=== PATIENT | male | born 1965 ===

== ENCOUNTER 2021-03-08 09:12 | Outpatient (CLI) | payer OTHER ==
--- NOTE | 2021-03-08 11:21 | Cat Scan Report ---
CT CHEST WITHOUT CONTRAST INDICATION / CLINICAL INFORMATION: COUGH. TECHNIQUE: Axial CT images were obtained through the chest without contrast. Sagittal and coronal reformatted im ages. All CT scans at this location are performed using CT dose reduction for ALARA by means of autom ated exposure control. COMPARISON: None available. FINDINGS: HEART: No significant abnormality. THORACIC AORTA: No significant abnormality. MEDIASTINUM and LANODN: No significant abnormality. LUNGS: The lungs are hyperinflated. Mild emphysematous changes are identified. There is mild diffuse groundglass opacification throughout both lungs. Interstitial markings are prominent bilaterally part icularly in the upper lobes. No evidence for acute infiltrate or suspicious mass. There appears to b e mild diffuse bronchiectasis bilaterally. Mild traction component is suspected in the upper lung zon es. PLEURA: No significant pleural effusion. No pneumothorax. SKELETAL SYSTEM: Osteopenia. Subacute right lateral rib fractures are identified at levels 7-benign. UPPER ABDOMEN: Nothing acute. ADDITIONAL FINDINGS: None. IMPRESSION: Hyperinflated lungs suggesting underlying emphysematous changes. There is diffuse groundglass opacity throughout both lungs with interstitial prominence and diffuse b ronchiectasis. These findings suggest interstitial lung disease or early fibrotic changes. No acute infiltrate or suspicious mass is detected. Osteopenia. Signer Name: Boo Guzman Jr, MD Signed: 03/08/2021 11:17 AM Workstation Name: [id number]
== END 2021-03-08 09:13 | disposition home or self-care (01) ==
LOC: CT 09:12
DX: J43.9 Emphysema, unspecified (principal); M85.88 Other specified disorders of bone density and structure, other site
CPT/HCPCS: 71250